=== PATIENT | male | born 1995 | race Caucasian/White ===

== ENCOUNTER 2017-03-05 14:55 | Inpatient (IN) | payer BC ==
[2017-03-05] MEDS ORDERED: SODIUM CHLORIDE 0.9% 500 ML IV STA (15:41)
--- NOTE | 2017-03-05 15:52 | ED ---
General Adult HPI - General Chief complaint: Seizure Stated complaint: SEIZURE Time Seen by Provider: 03/05/17 15:05 Source: patient, family, RN notes reviewed Mode of arrival: EMS Limitations: no limitations - History of Present Illness Initial comments: This is a 21-year-old male who presents to the emergency department with a past medical history of seizure-like activity though never diagnosed with seizures. Patient comes in today because he has had 2 episodes of seizure-like activity according to family the first was similar to the previous ones where he just kind of stares off and does not respond that lasted a few minutes and the second time he stared off and then stopped breathing according to family became blue in the face and started turning blue in the hands and had whole body convulsions according to the family. Family states the shaking lasted about 2 minutes complete unresponsiveness lasted about 10 and post ictal lasted until he got to the hospital. Patient denies any complaints except a minor headache. Patient denies any drug use or alcohol use. Patient denies any recent fever chills or cough. Patient denies any chest pain difficulty breathing Rolette of breath. Patient denies any abdominal pain patient denies any nausea vomiting diarrhea - Related Data Home Medications Medication Instructions Recorded Confirmed No Known Home Medications [No 03/05/17 03/05/17 Known Home Medications] Allergies Allergy/AdvReac Type Severity Reaction Status Date / Time No Known Allergies Allergy Unverified 03/05/17 15:13 Review of Systems ROS Statement: Those systems with pertinent positive or pertinent negative responses have been documented in the HPI. ROS Other: All systems not noted in ROS Statement are negative. Past Medical History Past Medical History: Seizure Disorder History of Any Multi-Drug Resistant Organisms: None Reported Past Surgical History: No Surgical Hx Reported Past Psychological History: No Psychological Hx Reported Smoking Status: Never smoker Past Alcohol Use History: Occasional Past Drug Use History: None Reported General Exam - General Exam Comments Initial Comments: GENERAL: Patient is well-developed and well-nourished. Patient is nontoxic and well- hydrated and is in no acute distress. ENT: Neck is soft and supple. No significant lymphadenopathy is noted. Oropharynx is clear. Moist mucous membranes. Neck has full range of motion without eliciting any pain. EYES: The sclera were anicteric and conjunctiva were pink and moist. Extraocular movements were intact and pupils were equal round and reactive to light. Eyelids were unremarkable. PULMONARY: Unlabored respirations. Good breath sounds bilaterally. No audible rales rhonchi or wheezing was noted. CARDIOVASCULAR: There is a regular rate and rhythm without any murmurs gallops or rubs. ABDOMEN: Soft and nontender with normal bowel sounds. No palpable organomegaly was noted. There is no palpable pulsatile mass. SKIN: Skin is clear with no lesions or rashes and otherwise unremarkable. NEUROLOGIC: Patient is alert and oriented x3. Cranial nerves II through XII are grossly intact. Motor and sensory are also intact. Normal speech, volume and content. Symmetrical smile. MUSCULOSKELETAL: Normal extremities with adequate strength and full range of motion. No lower extremity swelling or edema. No calf tenderness. LYMPHATICS: No significant lymphadenopathy is noted PSYCHIATRIC: Normal psychiatric evaluation. Limitations: no limitations Course Vital Signs 03/05/17 15:03 Temperature 97.9 F Pulse Rate 113 H Respiratory 18 Rate Blood Pressure 130/60 O2 Sat by Pulse 98 Oximetry Medical Decision Making - Medical Decision Making Patient's cyanotic appearance was validated by 3 separate people in 3 separate conversations. EKG shows sinus tachycardia at 110 bpm NE interval is 164 QRS is 76 QT interval 300 QTC is 406 patient's EKG shows no ST segment elevation or depression. - Lab Data Result diagrams: 03/05/17 16:00 03/05/17 16:00 Lab Results 03/05/17 03/05/17 03/05/17 Range/Units 16:00 16:00 16:00 WBC 12.5 H (3.8-10.6) k/uL RBC 5.00 (4.30-5.90) m/uL Hgb 15.5 (13.0-17.5) gm/dL Hct 42.7 (39.0-53.0) % MCV 85.3 (80.0-100.0) fL MCH 30.9 (25.0-35.0) pg MCHC 36.2 (31.0-37.0) g/dL RDW 12.1 (11.5-15.5) % Plt Count 219 (150-450) k/uL Neutrophils % 76 % Lymphocytes % 15 % Monocytes % 6 % Eosinophils % 1 % Basophils % 1 % Neutrophils # 9.6 H (1.3-7.7) k/uL Lymphocytes # 1.9 (1.0-4.8) k/uL Monocytes # 0.7 (0-1.0) k/uL Eosinophils # 0.1 (0-0.7) k/uL Basophils # 0.1 (0-0.2) k/uL Sodium 138 (137-145) mmol/L Potassium 4.6 (3.5-5.1) mmol/L Chloride 107 (98-107) mmol/L Carbon Dioxide 22 (22-30) mmol/L Anion Gap 9 mmol/L BUN 12 (9-20) mg/dL Creatinine 0.90 (0.66-1.25) mg/dL Est GFR (MDRD) Af Amer >60 (>60 ml/min/1.73 sqM) Est GFR (MDRD) Non-Af >60 (>60 ml/min/1.73 sqM) Glucose 89 (74-99) mg/dL Calcium 8.9 (8.4-10.2) mg/dL Total Bilirubin 0.5 (0.2-1.3) mg/dL AST 39 (17-59) U/L ALT 81 H (21-72) U/L Alkaline Phosphatase 77 (38-126) U/L Total Protein 7.1 (6.3-8.2) g/dL Albumin 4.2 (3.5-5.0) g/dL Salicylates <1.0 mg/dL Urine Opiates Screen Not Detected (NotDetected) Ur Oxycodone Screen Not Detected (NotDetected) Urine Methadone Screen Not Detected (NotDetected) Ur Propoxyphene Screen Not Detected (NotDetected) Acetaminophen <10.0 ug/mL Ur Barbiturates Screen Not Detected (NotDetected) U Tricyclic Antidepress Not Detected (NotDetected) Ur Phencyclidine Scrn Not Detected (NotDetected) Ur Amphetamines Screen Not Detected (NotDetected) U Methamphetamines Scrn Not Detected (NotDetected) U Benzodiazepines Scrn Not Detected (NotDetected) Urine Cocaine Screen Not Detected (NotDetected) U Marijuana (THC) Screen Not Detected (NotDetected) Serum Alcohol <10 mg/dL Disposition Clinical Impression: Generalized seizure, Apnea Disposition: ADMITTED IP TO THIS [facility] Referrals: Jose L Julien MD [Primary Care Provider] - 1-2 days Time of Disposition: 16:48
[2017-03-05 16:30] LABS: Basophils # (A) 0.1 k/uL (0-0.2); Basophils % (A) 1 %; CH 30.6; Eosinophils # (A) 0.1 k/uL (0-0.7); Eosinophils % (A) 1 %; HCT 42.7 % (39.0-53.0); HDW 2.65; HGB 15.5 gm/dL (13.0-17.5); Luc # (Auto) 0.23; Luc % (Auto) 2; Lymphocytes # (A) 1.9 k/uL (1.0-4.8); Lymphocytes % (A) 15 %; MCH 30.9 pg (25.0-35.0); MCHC 36.2 g/dL (31.0-37.0); MCV 85.3 fL (80.0-100.0); Mean Platelet Volume 6.9; Monocytes # (A) 0.7 k/uL (0-1.0); Monocytes % (A) 6 %; Neutrophils # (A) 9.6 k/uL (1.3-7.7); Neutrophils % (A) 76 %; RDW 12.1 % (11.5-15.5); WBC 12.5 k/uL (3.8-10.6); WBC (Perox) 12.97
--- NOTE | 2017-03-05 16:34 | CT ---
EXAMINATION TYPE: CT brain wo con DATE OF EXAM: 03/05/2017 COMPARISON: NONE INDICATION: Patient complains of seizure today. Patient has a history of prior seizures. DLP: 763.5 mGycm, Automated exposure control for dose reduction was used. CONTRAST: None CT of the brain is performed utilizing 3 mm thick sections through the posterior fossa and 3 mm thick sections through the remaining calvarium. Study is performed within 24 hours of arrival to the hosp ital. No abnormal hyperdensity is present to suggest an acute intracranial hemorrhage. No mass lesion is evident. No acute infarcts are evident. Ventricles and sulci are appropriate for the patient age. Paranasal sinuses and mastoid air cells within the [id number] are clear. IMPRESSIONS: 1. Normal CT Brain
[2017-03-05 16:37] LABS: ALT 81 U/L (21-72); AST 39 U/L (17-59); Acetaminophen <10.0 ug/mL; Alcohol <10 mg/dL; Alkaline Phosphatase 77 U/L (38-126); Anion Gap 9 mmol/L; Blood Urea Nitrogen 12 mg/dL (9-20); Calcium 8.9 mg/dL (8.4-10.2); Carbon Dioxide 22 mmol/L (22-30); Chloride 107 mmol/L (98-107); Glucose 89 mg/dL (74-99); Non-African American GFR(MDRD) >60 (>60 ml/min/1.73 sqM); Potassium 4.6 mmol/L (3.5-5.1); Salicylate <1.0 mg/dL; Sodium 138 mmol/L (137-145); Total Bilirubin 0.5 mg/dL (0.2-1.3); Total Protein 7.1 g/dL (6.3-8.2)
[2017-03-05] MEDS ORDERED: SODIUM CHLORIDE 0.9% 1,000 ML IV ONE (16:48)
[2017-03-05] MEDS ORDERED: LORazepam 2 MG/ML SYRINGE IV PRN (17:18)
[2017-03-05 18:06] VITALS: BMI 32.0
[2017-03-05] MEDS ORDERED: levETIRAcetam IV 1,000 MG in SALINE 1 100ML.BAG IVPB STA (20:23)
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
[2017-03-06] MEDS: levETIRAcetam 250 MG TAB PO SCH ×2 (09:34→20:32)
--- NOTE | 2017-03-06 14:43 | HP ---
HISTORY AND PHYSICAL DATE OF SERVICE: 03/05/2017 CHIEF COMPLAINT: Seizure disorder. HISTORY: This 21-year-old gentleman with past medical history of multiple medical problems including history of seizure disorder, history of THC, being followed primary physician, Dr. Julien, was admitted with complaints of seizures. Apparently the family witnessed 2 episodes of seizure-like activity, like tonic-clonic activity and the patient was taken to [facility] and admitted for further evaluation and treatment. The patient is not very compliant with medications at this time and neurology evaluation in progress. There is no history of any fever. No history of any chills. No history of any headache. No history of chest pain or palpitations. PAST MEDICAL HISTORY: Seizure disorder. HOME MEDICATIONS: None and unknown. ALLERGIES: None. FAMILY HISTORY: No history of heart disease or strokes in the family. SOCIAL HISTORY: History of occasional alcohol and THC. No history of smoking. REVIEW OF SYSTEMS: ENT: No diminished vision or hearing. CARDIOVASCULAR: No angina. RESPIRATORY: No cough or hemoptysis. GI: No nausea. : No dysuria. NERVOUS SYSTEM: As mentioned earlier. MUSCULOSKELETAL: As mentioned earlier. HEMATOLOGY/ONCOLOGY: No anemia. ENDOCRINE: No history of diabetes. CONSTITUTIONAL: As mentioned earlier. PHYSICAL EXAMINATION: The patient is alert and oriented x3. The pulse is 113, blood pressure 130/60, respiration 18, temp 97.8, pulse ox 98% on 2 liters. HEENT: Conjunctivae normal. Oral mucosa moist. NECK: No JVD. No carotid bruit. No lymph node enlargement. CARDIOVASCULAR: S1, S2. RESPIRATORY: Diminished breath sounds especially at the basis. No rhonchi, no crackles. \ ABDOMEN: Soft, nontender. No mass palpable. LEGS: No edema. NERVOUS SYSTEM: Higher function as mentioned earlier. Moves all four limbs. No focal motor or sensory deficits. Cranial nerves 2-12 grossly intact. LYMPHATICS: No lymph node in neck or axilla. SKIN: No rash. LABORATORY DATA: WBC ntd, hemoglobin 15.5. ASSESSMENT: 1. Acute seizure disorder, tonic-clonic, generalized. 2. Increased WBC. 3. Increased ALT. 4. History of THC. RECOMMENDATIONS AND DISCUSSION: In this 21-year-old gentleman who presents with multiple medical issues, at this time I recommend to continue current medication, continue to monitor, continue symptomatic treatment, neurology evaluation. His home medication list is not available. The patient is already started on Keppra at this time. We will continue to monitor and guarded prognosis because of multiple complex medical issues. Further recommendations to follow. Also, recommend close follow up with primary physician in outpatient setting. STANLEY / PIPPA: [id number] / MTDD
[2017-03-06 15:30] LABS: Appearance,Urine Clear (Clear); Bilirubin,Urine Negative (Negative); Glucose,Urine (UA) Negative (Negative); Ketones,Urine Negative (Negative); Leukocyte Esterase,Urine Negative (Negative); Nitrite,Urine Negative (Negative); Protein,Urine Negative (Negative); Specific Gravity,Urine 1.013 (1.001-1.035); UA Billing (MACRO vs. MICRO) CHEM; Urobilinogen,Urine <2.0 mg/dL (<2.0)
--- NOTE | 2017-03-06 16:02 | P.PN ---
Subjective Principal diagnosis: seizure Patient is a 21-year-old male being followed by neurology for seizure. Patient has a history of seizure disorder, THC use. Patient has not been very compliant with medication and has had multiple neurologists within the last 2-3 years. Patient presented to the ED yesterday for 2 occurrences of Partial Seizure. Patient Was Started on 1000 Mg IV Keppra Followed by 750 Mg Twice a Day. Patient Had 1000 Mg during the Nighttime and Was Observed to Have a Partial Seizure This Morning When Being Prepared for EEG Testing by Nursing Staff. EEG Was Obtained but Not Read. Patient was given his morning dose upon return from his EEG. Patient was AOx3, readied for EEG, no acute distress. Objective - Vital Signs Vital signs: Vital Signs Temp 97.8 F 03/06/17 14:49 Pulse 110 H 03/06/17 14:49 Resp 16 03/06/17 15:12 BP 129/72 03/06/17 14:49 Pulse Ox 97 03/06/17 14:49 Intake & Output 03/05/17 03/06/17 03/06/17 18:59 06:59 18:59 Intake Total 600 Balance 600 Weight 90.038 kg Intake: Amount of Fluid Infused ( 600 ml) Other: Voiding Method Toilet # Voids 1 1 - Exam Constitutional: AOx3, cooperative HEENT: NC/AT, no facial asymmetry is seen. Throat: Supple, no masses Respiratory: No increased work of breathing Cardiac: Regular rate and Rhythm GI: non tender, non distended Musculoskeletal: Research Editor strengths are equal bilaterally 5/5, Lower extremity strengths are equal bilaterally at 5/5. Neurological: CN II-XII in tact, patient was AOx3, speech and language are normal, no unilateralizing weakness, no seizure activity note on physical exam. Sensation was normal. Integementary: no rash, no erythema Psychiatric: mood and affect appropriate - Labs CBC & Chem 7: 03/05/17 16:00 03/05/17 16:00 Labs: Abnormal Lab Results - Last 24 Hours (Table) 03/05/17 03/05/17 Range/Units 16:00 16:00 WBC 12.5 H (3.8-10.6) k/uL Neutrophils # 9.6 H (1.3-7.7) k/uL ALT 81 H (21-72) U/L Assessment and Plan (1) Absence seizure Status: Acute (2) Generalized seizure Status: Acute (3) Infectious process Status: Acute Plan: 1. Seizure: Patient does appear to have experienced ongoing seizure activity which has been intermittent since fall 2014. Patient was seizure free while slleping but had one break through seizure earlier this morning. Continue Keppra 750 mg every 12 hours thereafter. Patient had an EEG performed. Continue seizure precautions. Further treatment options will be discussed once the results of testing has been received. 2. Infectious process: Patient is noted to have elevated WBCs after review of laboratory blood work. It is possible that his infectious process is exacerbating his seizure disorder. Treat underlying process and monitor for any breakthrough seizure. From recent past experience, please if starting antibiotic use neurodegeneration antibiotics to decrease the risk of reduced seizure threshold. Status: Neurology will continue to follow and provide further updates as needed or warranted. Feel free to contact our office with any questions. I discussed the patient's pertinent medical information with Dr. Vu. He agrees with the plan of care as implemented.
[2017-03-06 17:32] LABS: ALT 71 U/L (21-72); AST 37 U/L (17-59); Alkaline Phosphatase 71 U/L (38-126); Anion Gap 8 mmol/L; Blood Urea Nitrogen 10 mg/dL (9-20); Calcium 8.8 mg/dL (8.4-10.2); Carbon Dioxide 23 mmol/L (22-30); Chloride 108 mmol/L (98-107); Glucose 80 mg/dL (74-99); Non-African American GFR(MDRD) >60 (>60 ml/min/1.73 sqM); Potassium 4.3 mmol/L (3.5-5.1); Sodium 139 mmol/L (137-145); Total Bilirubin 0.5 mg/dL (0.2-1.3); Total Protein 6.4 g/dL (6.3-8.2)
[2017-03-07] MEDS: levETIRAcetam 250 MG TAB PO SCH (07:28)
[2017-03-07 07:44] VITALS: RESP 18
--- NOTE | 2017-03-07 08:35 | PN ---
PROGRESS NOTE DATE OF SERVICE: 03/06/2007 This 21-year-old gentleman admitted with a seizure disorder, also this morning. The patient was started on Keppra. not available. The patient was also seen by the neurology at this time. The patient was also seen by Urology also but however there was no followup because prescriptions will not last more than 30 days according to the family. The patient does not have any previous history of seizures which has been noted since last 1 and half years and the patient never had a MRI done. PAST MEDICAL HISTORY: Reviewed. REVIEW OF SYSTEMS: CARDIOVASCULAR: No angina. RESPIRATORY: As mentioned. GI: No nausea. : No dysuria. NERVOUS SYSTEM: As mentioned earlier. CURRENT MEDICATIONS: Current medications are reviewed and include: 1. Keppra 750 b.i.d. 2. Ativan 2 mg q.6 p.r.n. ALLERGIES: Noted. PHYSICAL EXAMINATION: The patient is alert, oriented x3. Pulse 110, blood pressure 129/72, respiratory 14, temperature 97.2, pulse ox 97% on room air. HEENT: Conjunctivae normal. Oral mucosa moist. NECK: No jugular venous distention. No carotid bruit. No lymph node enlargement. CARDIOVASCULAR: S1, S2. No S3, no S4. RESPIRATORY: Breath sounds diminished in the bases. A few scattered rhonchi. No crackles. ABDOMEN: Soft, nontender. No mass palpable. LEGS: No edema, no swelling. NERVOUS SYSTEM: Higher function as mentioned. Moves all all four limbs. No focal deficits. LYMPHATIC: No lymphadenopathy in the neck, axillae, or groin. SKIN: No rash, ulcer or bleeding. LABS: Drug screen and UA are negative. Otherwise ALT is 81, WBC 12.5. ASSESSMENT: 1. Acute recurrent seizures and breakthrough seizures, generalized tonic-clonic. 2. Increased WBC. 3. Increased ALT. 4. History of THC. RECOMMENDATIONS AND DISCUSSION: This 21-year-old gentleman who presented with multiple multiple complex medical issues, will monitor the patient closely. Continue the current medications, continue symptomatic treatment. Will repeat the labs at this time. UA has also been ordered. The urine culture negative.also apparently negative. Otherwise we will follow the patient closely and I would also recommend MRI and EEG has been taken. Further recommendations to follow. MMODL / IJN: [id number] / [facility]
[2017-03-07 08:38] LABS: Basophils # (A) 0.1 k/uL (0-0.2); Basophils % (A) 1 %; CH 31.6; CHCM 36.7; Eosinophils # (A) 0.1 k/uL (0-0.7); Eosinophils % (A) 2 %; HCT 47.9 % (39.0-53.0); HDW 2.66; HGB 15.8 gm/dL (13.0-17.5); Luc # (Auto) 0.14; Luc % (Auto) 2; Lymphocytes # (A) 2.2 k/uL (1.0-4.8); Lymphocytes % (A) 31 %; MCH 28.6 pg (25.0-35.0); MCV 86.5 fL (80.0-100.0); Mean Platelet Volume 7.5; Monocytes # (A) 0.4 k/uL (0-1.0); Monocytes % (A) 5 %; Neutrophils # (A) 4.2 k/uL (1.3-7.7); Neutrophils % (A) 60 %; RBC 5.54 m/uL (4.30-5.90); RDW 13.4 % (11.5-15.5); WBC (Perox) 6.79
--- NOTE | 2017-03-07 12:53 | P.DS ---
Providers Date of admission: 03/05/17 16:48 Attending physician: Stefan Robb MD Consults: 03/05/17 16:48 Consult Physician Urgent Consulting Provider: Kush Vu Consult Reason/Comments: Seizure, apnea Do you want consulting provider notified?: Yes Primary care physician: Jose L Aguiar [facility] Course: This 21-year-old gentleman who was being followed by Dr. julien was admitted with acute recurrent and seizures and breakthrough seizures off tonic-clonic type. Patient was given Keppra by neurologist. Patient improved significantly. MRI is pending. I recommended the patient to follow-up with the primary physician and as well as some neurologist in the outpatient setting closely. Patient and family understands and agrees. On exam vitals stable. Cardio S1 and S2 normal. Chest clear prostration. Abdomen soft nontender. No system no focal deficit. Final diagnosis 1. Acute recurrent seizures and breakthrough seizures generalized tonic-clonic. 2. Increased WBC possibly reactive. 3. Increased ALT. 4. History of THC. Plan - Discharge Summary New Discharge Prescriptions: New levETIRAcetam [Keppra] 750 mg PO Q12HR #180 tab Discharge Medication List levETIRAcetam [Keppra] 750 mg PO Q12HR #180 tab 03/07/17 [Rx] Follow up Appointment(s)/Referral(s): Kush Vu MD [STAFF PHYSICIAN] - 2 Weeks (Dr Hickman office will call patient to schedule an appointment) Jose L Julien MD [Primary Care Provider] - 03/10/17 1:40 pm Patient Instructions/Handouts: New-Onset Seizure in Adults (DC) Activity/Diet/Wound Care/Special Instructions: Seizure precautions, no driving MRI Pending Final urine cx results to PCP
[2017-03-07 15:07] VITALS: BP 128/76; PULSE 108; TEMP 97.4
--- NOTE | 2017-03-07 19:43 | MR ---
EXAMINATION TYPE: MR brain wo/w con DATE OF EXAM: 03/07/2017 COMPARISON: NONE HISTORY: Patient complains of seizure. Patient has a history of prior seizures. TECHNIQUE: Multiplanar, multisequence images of the brain and brainstem is performed without and with IV contras t, utilizing 7.5 mL intravenous Gadavist . FINDINGS: There is artifact presumably due to patient's dental work. Diffusion weighted images demons trate no evidence of a recent infarct or other diffusion abnormality. There is no extra-axial fluid collection or significant white matter signal abnormality. The ventricular system and cisternal spac es are normal in size and appearance. The brain volume is age appropriate. Midline structures demonstrate normal morphology. The craniocervical junction appears within normal limits. Post contrast images demonstrate no abnormal enhancement. The dural venous sinuses appear pa tent. The visualized sinuses are clear and the globes are intact. IMPRESSION: Normal brain MRI with and without contrast
--- NOTE | 2017-03-08 07:47 | EEG ---
ELECTROENCEPHALOGRAM REPORT DATE OF SERVICE: 03/06/2017 REASON FOR TESTING: Seizure. CURRENT ANTIEPILEPTIC MEDICATIONS: Keppra. DESCRIPTION OF THE PROCEDURE: This EEG was performed using a 21 channel digital electroencephalograph, following international 10 - 20 system. DESCRIPTION OF THE RECORDING: From the beginning of the tracing, and with the patient's eyes closed, the background rhythm was mostly consisting of 9 hertz alpha frequency in the posterior occipital leads. No obvious asymmetry is seen. Hyperventilation was performed with a minimal buildup of amplitude seen. No pathological waves were elicited. Photic stimulation was performed with a mild driving response seen. The patient remains awake throughout the tracing. Occasional movement artifacts are seen. No epileptiform discharges were noticed. His EKG lead showed a regular rate and rhythm. INTERPRETATION: This awake EEG can be considered within normal limits. There was no asymmetry seen. No epileptiform discharges were noticed. The absence of epileptiform discharges does not rule out the diagnosis of epilepsy, therefore clinical correlation is recommended. MMLIVIAL / IJKavya: [id number] /
== END 2017-03-07 19:57 | disposition home or self-care (01) | DRG 101 ==
LOC: EC 14:55 → 4MS4W 16:48
PROVIDERS: ADMIT Internal Medicine; ATTEND Internal Medicine
DX: G40.909 Epilepsy, unspecified, not intractable, without status epilepticus (principal)
CPT/HCPCS: 36415; 70450; 70553; 80053; 80177; 80306; 80320; 81003; 83520; 83605; 85025; 87077; 87086; 87186; 93005; 95816; 96360; 99285

== ENCOUNTER 2021-01-02 21:24 | Emergency (ER) | payer SELFPAY ==
[2021-01-02 21:35] VITALS: TEMP 99.2
[2021-01-02] MEDS ORDERED: LORazepam 2 MG/ML INJ IV STA (21:38)
[2021-01-02] MEDS ORDERED: SODIUM CHLORIDE 0.9% 1,000 ML IV ONE (21:38)
[2021-01-02 21:49] LABS: Basophils % (A) 0 %; Eosinophils # (A) 0.1 k/uL (0-0.7); Eosinophils % (A) 1 %; HCT 42.9 % (39.0-53.0); HGB 15.1 gm/dL (13.0-17.5); Lymphocytes # (A) 1.7 k/uL (1.0-4.8); Lymphocytes % (A) 23 %; MCHC 35.2 g/dL (31.0-37.0); MCV 88.1 fL (80.0-100.0); Mean Platelet Volume 7.4; Monocytes # (A) 0.5 k/uL (0-1.0); Monocytes % (A) 6 %; Neutrophils # (A) 5.1 k/uL (1.3-7.7); Neutrophils % (A) 69 %; Platelet Count 225 k/uL (150-450); RBC 4.88 m/uL (4.30-5.90); WBC 7.3 k/uL (3.8-10.6)
--- NOTE | 2021-01-02 21:52 | ED ---
Seizure HPI - General Chief Complaint: Seizure Stated Complaint: poss seizure Time Seen by Provider: 01/02/21 21:29 Source: patient, EMS Mode of arrival: EMS Limitations: no limitations - History of Present Illness Initial Comments: This patient is 25-year-old man who states he has history of seizure disorder. Phoned EMS tonight after he had reportedly had a number of episodes of staring off and reaching for things. Patient had smoked marijuana prior. On arrival, patient states he is having a bad seizure. He is alert and conversant. Patient has some shaking movements of the right hand. Denies chest pain, dyspnea, abdominal pain, headache, nausea or vomiting. No change in vision. MD Complaint: possible seizure Onset/Timin -: hour(s) Description of Episode: tonic-clonic movement -: second(s) Trauma: No Seizure History: known seizure disorder Place: home Possible Precipitating Event: drug use Associated Symptoms: denies other symptoms Treatments Prior to Arrival: none - Related Data Previous Rx's Medication Instructions Recorded levETIRAcetam [Keppra] 750 mg PO Q12HR #180 tab 03/07/17 Allergies Allergy/AdvReac Type Severity Reaction Status Date / Time No Known Allergies Allergy Verified 01/02/21 21:35 Review of Systems ROS Statement: Those systems with pertinent positive or pertinent negative responses have been documented in the HPI. ROS Other: All systems not noted in ROS Statement are negative. Constitutional: Denies: fever, weakness Eyes: Denies: eye pain, vision change Respiratory: Denies: cough, dyspnea Cardiovascular: Denies: chest pain, edema, syncope Gastrointestinal: Denies: abdominal pain, nausea, vomiting, diarrhea Genitourinary: Denies: dysuria, hematuria, testicular pain Musculoskeletal: Denies: back pain Skin: Denies: rash Neurological: Denies: headache, weakness, numbness, paresthesias Psychiatric: Reports: anxiety Past Medical History Past Medical History: Seizure Disorder History of Any Multi-Drug Resistant Organisms: None Reported Past Surgical History: No Surgical Hx Reported Past Anesthesia/Blood Transfusion Reactions: No Reported Reaction Past Psychological History: No Psychological Hx Reported Smoking Status: Current some day smoker Past Alcohol Use History: Occasional Past Drug Use History: Marijuana General Exam Limitations: no limitations General appearance: alert, in no apparent distress, appears intoxicated, anxious Head exam: Present: atraumatic, normocephalic Eye exam: Present: normal appearance, PERRL, EOMI, nystagmus. Absent: scleral icterus, conjunctival injection ENT exam: Present: normal oropharynx Neck exam: Present: normal inspection, full ROM. Absent: tenderness, meningismus Respiratory exam: Present: normal lung sounds bilaterally. Absent: respiratory distress, wheezes, rales, rhonchi, stridor Cardiovascular Exam: Present: normal rhythm, tachycardia, normal heart sounds. Absent: systolic murmur, diastolic murmur, rubs, gallop GI/Abdominal exam: Present: soft. Absent: distended, tenderness, guarding, rebound, rigid, mass Extremities exam: Present: normal inspection, normal capillary refill. Absent: pedal edema, calf tenderness Back exam: Present: normal inspection. Absent: CVA tenderness (R), CVA tenderness (L), vertebral tenderness Neurological exam: Present: alert, oriented X3, CN II-XII intact. Absent: motor sensory deficit Psychiatric exam: Present: anxious Skin exam: Present: warm, dry, intact, normal color. Absent: rash Course Vital Signs 01/02/21 01/02/21 21:26 22:35 Temperature 99.2 F Pulse Rate 115 H 108 H Respiratory 16 18 Rate Blood Pressure 148/94 126/95 O2 Sat by Pulse 98 98 Oximetry Medical Decision Making - Medical Decision Making Patient is observed while having the episode is referring to a seizure. There is some shaking of the right hand however not appearing classic for focal seizure. In addition patient able to converse. No postictal period. No loss continence. I suspect psychogenic origin or very atypical type of seizure. - Lab Data Result diagrams: 01/02/21 21:36 01/02/21 21:36 Lab Results 01/02/21 01/02/21 01/02/21 Range/Units 21:36 21:36 23:08 WBC 7.3 (3.8-10.6) k/uL RBC 4.88 (4.30-5.90) m/uL Hgb 15.1 (13.0-17.5) gm/dL Hct 42.9 (39.0-53.0) % MCV 88.1 (80.0-100.0) fL MCH 31.0 (25.0-35.0) pg MCHC 35.2 (31.0-37.0) g/dL RDW 12.0 (11.5-15.5) % Plt Count 225 (150-450) k/uL MPV 7.4 Neutrophils % 69 % Lymphocytes % 23 % Monocytes % 6 % Eosinophils % 1 % Basophils % 0 % Neutrophils # 5.1 (1.3-7.7) k/uL Lymphocytes # 1.7 (1.0-4.8) k/uL Monocytes # 0.5 (0-1.0) k/uL Eosinophils # 0.1 (0-0.7) k/uL Basophils # 0.0 (0-0.2) k/uL Sodium 139 (137-145) mmol/L Potassium 3.7 (3.5-5.1) mmol/L Chloride 108 H (98-107) mmol/L Carbon Dioxide 21 L (22-30) mmol/L Anion Gap 10 mmol/L BUN 17 (9-20) mg/dL Creatinine 0.90 (0.66-1.25) mg/dL Est GFR (CKD-EPI)AfAm >90 (>60 ml/min/1.73 sqM) Est GFR (CKD-EPI)NonAf >90 (>60 ml/min/1.73 sqM) Glucose 130 H (74-99) mg/dL Calcium 9.9 (8.4-10.2) mg/dL Urine Opiates Screen Not Detected (NotDetected) Ur Oxycodone Screen Not Detected (NotDetected) Urine Methadone Screen Not Detected (NotDetected) Ur Propoxyphene Screen Not Detected (NotDetected) Ur Barbiturates Screen Not Detected (NotDetected) U Tricyclic Antidepress Not Detected (NotDetected) Ur Phencyclidine Scrn Not Detected (NotDetected) Ur Amphetamines Screen Not Detected (NotDetected) U Methamphetamines Scrn Not Detected (NotDetected) U Benzodiazepines Scrn Not Detected (NotDetected) Urine Cocaine Screen Not Detected (NotDetected) U Marijuana (THC) Screen Detected H (NotDetected) - EKG Data -: EKG Interpreted by Fl EKG shows normal: sinus rhythm, axis (Normal), intervals (Normal), QRS complexes (Normal) Rate: tachycardia (Rate 126) Disposition Clinical Impression: Absence seizure Disposition: HOME SELF-CARE Instructions (If sedation given, give patient instructions): Seizure/Epilepsy Discharge Instructions & Follow-Up, Recurrent Seizures in Adults (ED) Is patient prescribed a controlled substance at d/c from ED?: No Referrals: Jose L Julien MD [Primary Care Provider] - 1-2 days
[2021-01-02 22:06] LABS: African American GFR (CKD) >90 (>60 ml/min/1.73 sqM); Anion Gap 10 mmol/L; Blood Urea Nitrogen 17 mg/dL (9-20); Calcium 9.9 mg/dL (8.4-10.2); Carbon Dioxide 21 mmol/L (22-30); Chloride 108 mmol/L (98-107); Glucose 130 mg/dL (74-99); Non-African American GFR(CKD) >90 (>60 ml/min/1.73 sqM); Potassium 3.7 mmol/L (3.5-5.1); Sodium 139 mmol/L (137-145)
[2021-01-02 23:28] LABS: Amphetamine Screen,Urine Not Detected (NotDetected); Barbiturate Screen,Urine Not Detected (NotDetected); Benzodiazepines Screen,Urine Not Detected (NotDetected); Cocaine Screen,Urine Not Detected (NotDetected); Methadone Screen, Urine Not Detected (NotDetected); Opiate Screen,Urine Not Detected (NotDetected); Oxycodone Screen, Urine Not Detected (NotDetected); Phencyclidine Screen,Urine Not Detected (NotDetected); Tricyclic Antidepressant,Urine Not Detected (NotDetected); Urn Cannabinoid Scrn Detected (NotDetected)
[2021-01-03 00:29] VITALS: BP 123/80; PULSE 113; RESP 16
== END 2021-01-03 00:29 | disposition home or self-care (01) ==
LOC: EC 21:24
DX: G40.A09 Absence epileptic syndrome, not intractable, without status epilepticus (principal); F17.200 Nicotine dependence, unspecified, uncomplicated; F12.90 Cannabis use, unspecified, uncomplicated
CPT/HCPCS: 36415; 93005; 80048; 85025; 80306; 99284; 96374; J2060